=== PATIENT | female | born 1965 | race Caucasian/White ===

== ENCOUNTER → 2016-10-07 | Outpatient (CLI) | payer OTHER ==
[~2016-10-07] VITALS: Ht 162.6 cm; Wt 62.6 kg
[~2016-10-07] MED LIST: ATENOLOL 50 MG50 M1 PO; FISH OIL 1,001000 M2 PO; GLUCOPHAGE500 MG PO; LEVOTHROID PO; LEVOTHYROXIN0.025 MG PO; LEXAPRO 10 MG T10 M2 PO; LEXAPRO PO; TENORMIN25 MG PO; VIORELE 28 DAY1 EACH PO
--- NOTE | ~2016-10-07 | HPC ---
[facility] [place] [address] PAIN MANAGEMENT CONSULTATION Name: ORLANDO DANIELS Juli [id number] Admission: 10/07/16 Attend Phys: Simon Orona MD Discharge: Date of : 65 Report #: [id number] THIS REPORT FOR: //name// CC: Shahram Orona DATE OF SERVICE: 10/07/2016 CHIEF COMPLAINT: Chronic right hip pain with radiation into the anterior thigh. HISTORY OF PRESENT ILLNESS: The patient is a very pleasant 51-year-old seen today at the request of Dr. Briceño's office for consideration of an epidural steroid injection. The patient tells me that she has pain in her low back and it radiates down into the front of her right foot. Most of the pain is essentially in her hip. She describes it as chronic over the last 10 years. In asking history of distant trauma, she did recall a skiing injury when she was in her 20s. She had hyperextension and pain in her right hip that resolved, but that is the only traumatic injury that she can recall involving the right hip. It was notable enough that she remembers it to the stay and may play a role in this chronic condition. The patient has had numerous treatments over the course of the last 10 years including physical therapy, chiropractic treatment. Going as far as herb therapy with [place] herbs and acupuncture. Nothing seems to have helped much. She has been in Dr. Briceño's office for treatment and evaluation. Some attention has been given to the piriformis muscle and the sacroiliac joint, although she has not seen any lasting improvement. When the pain is really severe at night, she gets out of bed and lays on the floor in a lateral decubitus needle position on the affected hip and that seems to provide relief. Descriptors include steady, constant, crushing and burning, pain intensity today is a 3-4, and average daily pain is 7/10. MEDICATIONS: Atenolol 25 mg per day, Synthroid 25 mcg, Lexapro 10 mg daily and daily control. ALLERGIES: SULFA MEDICATIONS AND ERYTHROMYCIN. PAST MEDICAL HISTORY: Positive for right breast biopsy in 2015 and 2017 on the right. She had some macular treatments in 2013. Breast augmentation in 2000. She is under treatment for hypertension and hyperthyroidism. [address] [address] PAIN MANAGEMENT CONSULTATION Name: ORLANDO DANIELS Juli Room #: REG [facility]#: [id number] Admission: 10/07/16 Attend Phys: Simon Orona MD Discharge: Date of : 65 Report #: [id number] SOCIAL HISTORY: She is and has a 32-year-old biological son. No grandchildren. 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 Denies use of tobacco. Has a glass of wine with dinner. Impacted pain scores are quite low. Pain primarily affects sleep at night where she reports 9 out of 10 in interference. REVIEW OF SYSTEMS: Completed by the patient, describes some hearing loss, nocturia and thyroid issues. PHYSICAL EXAMINATION: GENERAL: She is very pleasant, healthy appearing 51-year-old. VITAL SIGNS: Blood pressure 164/99, heart rate 64, respirations 16. She is 5 feet 4 inches, 138 pounds with a BMI of 23.7. NEUROLOGIC: She ambulates easily, moving from sitting to standing position without difficulty. She walks without antalgic features to her gait in high heels. Standing flat foot at the bedside, she is able to flex, extend, lateral tilt and rotate through the lumbar spine without exacerbation of her hip or anterior thigh pain. There is no tenderness over the low back, but mild tenderness over the right sacroiliac joint today. Most of this is in the upper portion of the right sacroiliac joint and is an area that she feels that pain generates from. In the supine position, straight leg raising is negative bilaterally. Hip range of motion is excellent in the right and left with no pain at all with internal or external rotation. Lucrecia test is negative. Examination of the lower extremity reveals normal sensation to light touch and pinprick. Deep tendon reflexes are 2+ at the knees and ankles and there is no asymmetry. She has no focal weakness throughout the lower extremities. MRI scan is reviewed of the lumbar spine and is really quite normal for age. It shows only mild disk and degenerative changes. There is no significant spinal stenosis or neural foraminal stenosis. In the areas of concern where she has a dermatomal L3-L4 pain, she has mild minimal disk bulging, but nothing surgically significant. IMPRESSION: Chronic right hip pain. Pain generators include the possibility of sacroiliac joint mechanism, soft tissue or hip arthralgia. Lumbar radiculopathy has been considered by Dr. Briceño and Ms. Griggs and she is here today for epidural steroid injection based upon their recommendation. We discussed the three generators in question. Epidural steroid injection can provide symptomatic relief and the lou is to provide symptomatic relief of a meaningful degree. It will not necessarily be diagnostic if she responds. I told her that I thought that in order of likelihood, I would consider sacroiliac joint, periarticular soft tissue of the hip and lumbar radiculopathy to all be considerations probably in that order. I spent about 45 minutes with the patient. We discussed all these pain [facility] [address] [place] [address] PAIN MANAGEMENT CONSULTATION Name: ORLANDO DANIELS Room #: REG SHY Bazzi#: [id number] Admission: 10/07/16 Attend Phys: Simon Orona MD Discharge: Date of : 65 Report #: [id number] generators. Multiple questions were asked and answered. She may return for the requested epidural steroid injection to rule out radicular symptoms as a possible pain generator in the next week or two. By: [id number] [id number] Simon Orona MD /nt
[2016-10-07 08:30] VITALS: BP 164/99
== END ==
LOC: PAIN 06:39
DX: G89.29 Other chronic pain (principal); M54.16 Radiculopathy, lumbar region; I10 Essential (primary) hypertension; E03.9 Hypothyroidism, unspecified

== ENCOUNTER → 2016-10-23 | Outpatient (CLI) | payer OTHER ==
[~2016-10-23] VITALS: Ht 162.6 cm; Wt 64.9 kg
--- NOTE | ~2016-10-23 | HPC ---
[facility] [place] [address] [address] [place] [address] PAIN MANAGEMENT CONSULTATION Name: ORLANDO DANIELS Juli Room #: REG [facility].#: [id number] Admission: 10/23/16 Attend Phys: Simon Orona MD Discharge: Date of : 65 Report #: [id number] THIS REPORT FOR: //name// CC: Shahram Orona DATE OF SERVICE: 10/23/2016 Followup visit for chronic right hip pain with radiation in her anterior thigh. The patient was seen in the pain clinic on 10/07/2016. She is here today with her and prepared for an epidural steroid injection. We reviewed her history from 2 weeks ago when nothing has changed. She is on no new medications. No allergies to medications that will be used during the injection. IMPRESSION: 1. Chronic right hip pain with radicular features. 2. Lumbar radiculopathy, right L4-L5 distribution. PROCEDURE: Lumbar epidural steroid injection under fluoroscopic guidance. PROCEDURE: She was taken to the fluoroscopic suite and placed prone. Skin prepped with ChloraPrep. Skin anesthetized over L4-L5. A 20-gauge Tuohy epidural needle advanced in the epidural space with loss of resistance technique. No blood or CSF aspirated. A 1 mL of Omnipaque injected. Good spread of dye observed in the epidural space, followed by 3 mL of 0.5% lidocaine mixed with 80 mg triamcinolone. She tolerated the procedure well, was observed for 45 minutes and discharged. Followup visit planned as needed. By: 1700 [id number] Simon Orona MD /nt
[2016-10-23 12:53] VITALS: BP 162/86
== END ==
LOC: PAIN 06:58
DX: M54.16 Radiculopathy, lumbar region (principal); I10 Essential (primary) hypertension